=== PATIENT | male | born 1965 | race Caucasian/White ===

== ENCOUNTER 2023-06-29 23:52 | Inpatient (IN) | payer BC ==
[2023-06-30 00:13] LABS: #Basophils 0.1 thou/uL (0.0-0.2); #Eosinphils 0.1 thou/uL (0.0-0.7); #Monocytes 1.2 thou/uL (0.11-0.59); #Neutrophils 5.8 thou/uL (1.40-6.50); %Basophils 0.4 % (0.0-1.0); %Eosinophils 0.7 % (0.0-10.0); %Lymphocytes 41.8 % (21.0-51.0); %Monocytes 9.4 % (0.0-10.0); Hematocrit 23.2 % (42.0-52.0); Hemoglobin 7.9 g/dL (14.0-18.0); Mean Corpuscular HGB CONC 34.1 g/dL (32.0-36.0); Mean Corpuscular Volume 93.9 fl (78.0-98.0); Mean Platelet Volume 10.9 fL (7.4-10.4); Platelet Count 170 10x3/uL (130-400); RBC Distribution Width 14.9 % (11.5-14.5); Red Blood Cell (RBC) Count 2.47 mill/uL (4.70-6.10); White Blood Cell (WBC) Count 12.3 10x3/uL (4.8-10.8)
[2023-06-30] MEDS ORDERED: Tranexamic Acid 1,000 MG/10 ML VIAL ONE (00:29)
[2023-06-30] MEDS ORDERED: Pantoprazole 40 MG VIAL ONE (00:29)
[2023-06-30 00:37] LABS: ALT (SGPT) 62 U/L (8-55); AST (SGOT) 62 U/L (5-34); Albumin 3.5 g/dL (3.5-5.0); Alkaline Phosphatase 59 U/L (40-110); Anion Gap 20 mmol/L (10-20); BUN (Urea Nitrogen) 49 mg/dL (8.4-25.7); Bilirubin, Total 0.3 mg/dL (0.2-1.2); Calc. Creatinine Clearance 0 mL/min (70-130); Calcium 8.5 mg/dL (7.8-10.44); Carbon Dioxide 18 mmol/L (22-29); Chloride 106 mmol/L (98-107); Estimated GFR 99; Globulin 2.4 g/dL (2.4-3.5); Glucose 138 mg/dL (70-105); Lipase 72 U/L (8-78); Potassium 3.9 mmol/L (3.5-5.1); Protein, Total 5.9 g/dL (6.0-8.3); Sodium 140 mmol/L (136-145)
[2023-06-30 00:39] LABS: INR-International Normal Ratio 1.2; Prothrombin Time 15.2 sec (12.0-14.7)
[2023-06-30 00:40] LABS: PTT 25.3 sec (22.9-36.1); Troponin I 0.053 ng/mL (< 0.028)
[2023-06-30] MEDS ORDERED: Ondansetron PF 4 MG/2 ML Vial ONE (00:47)
[2023-06-30] MEDS ORDERED: cefTRIAXone (ROCEPHIN) 2 GM VIAL ONE (02:36)
[2023-06-30] MEDS ORDERED: Sodium Chloride 0.9% 100 ML ONE (02:36)
[2023-06-30] MEDS ORDERED: Acetaminophen 650 MG Suppository PR PRN (03:35)
[2023-06-30] MEDS ORDERED: Ondansetron PF 4 MG/2 ML Vial IVP PRN (03:35)
[2023-06-30] MEDS ORDERED: Ondansetron ODT 4 MG TAB PO PRN (03:35)
[2023-06-30] MEDS ORDERED: Dextrose 5%-Lactated Ringers 1,000 ML IV SCH (03:45)
[2023-06-30 04:04] VITALS: BMI 23.6
[2023-06-30 04:26] LABS: Troponin I 0.107 ng/mL (< 0.028)
[2023-06-30] MEDS ORDERED: Iopamidol 370 76% 100 ML VIAL ONE (09:12)
[2023-06-30 09:43] LABS: Troponin I 0.066 ng/mL (< 0.028)
[2023-06-30 09:54] LABS: Hemoglobin 8.2 g/dL (14.0-18.0)
[2023-06-30] MEDS: Pantoprazole 80 MG, Admixture Fee 1 EACH in Sodium Chloride 0.9% 100 ML IVPB SCH (14:56)
[2023-06-30] MEDS ORDERED: GoLYTELY 4,000 ml Bottle PO SCH (18:15)
[2023-06-30] MEDS ORDERED: hydrOXYzine 10 MG TAB PO SCH (20:00)
[2023-07-01] MEDS: Pantoprazole 80 MG, Admixture Fee 1 EACH in Sodium Chloride 0.9% 100 ML IVPB SCH (01:22)
[2023-07-01] MEDS ORDERED: Midazolam HCl 2 mg/2 ml Vial ONE (08:33)
[2023-07-01] MEDS ORDERED: PROPOFOL 40 ML ONE (09:02)
[2023-07-01] MEDS ORDERED: Lidocaine 2% PF 5 ML VIAL ONE (09:02)
[2023-07-01] MEDS ORDERED: PHENYLEPHRINE-NS 100 MCG/ML 10 ML SYRINGE ONE (09:03)
[2023-07-01] MEDS ORDERED: PROPOFOL 20 ML ONE (09:38)
[2023-07-01] MEDS ORDERED: Simethicone 40 MG/0.6 ML Drop 30 ML BOT ONE (09:38)
[2023-07-01] MEDS ORDERED: Promethazine HCl 25 MG/ML VIAL IM PRN (09:58)
[2023-07-01] MEDS ORDERED: Ondansetron HCl/PF 4 MG/2 ML Vial IVP PRN (09:58)
[2023-07-01 11:07] LABS: Campy jejuni + coli by PCR Negative (Negative); STEC Shiga Toxin 1+2 Negative (Negative); Salmonella spp. by PCR Negative (Negative); Shigella spp + EIEC by PCR Negative (Negative)
[2023-07-01] MEDS: Acetaminophen 325 MG TAB PO PRN ×2 (12:03→21:16)
[2023-07-01 13:17] LABS: #Monocytes 0.6 thou/uL (0.11-0.59); #Neutrophils 4.8 thou/uL (1.40-6.50); %Basophils 0.3 % (0.0-1.0); %Eosinophils 0.3 % (0.0-10.0); %Lymphocytes 21.1 % (21.0-51.0); %Monocytes 8.5 % (0.0-10.0); %Neutrophils 69.1 % (42.0-75.0); Hematocrit 24.3 % (42.0-52.0); Hemoglobin 8.1 g/dL (14.0-18.0); Mean Corpuscular HGB CONC 33.3 g/dL (32.0-36.0); Mean Corpuscular Hemoglobin 31.8 pg (27.0-31.0); Mean Corpuscular Volume 95.3 fl (78.0-98.0); Mean Platelet Volume 10.3 fL (7.4-10.4); Platelet Count 144 10x3/uL (130-400); RBC Distribution Width 15.9 % (11.5-14.5); Red Blood Cell (RBC) Count 2.55 mill/uL (4.70-6.10); White Blood Cell (WBC) Count 6.9 10x3/uL (4.8-10.8)
[2023-07-01 13:34] LABS: Anion Gap 12 mmol/L (10-20); BUN (Urea Nitrogen) 16 mg/dL (8.4-25.7); Calc. Creatinine Clearance 98 mL/min (70-130); Calcium 8.4 mg/dL (7.8-10.44); Carbon Dioxide 24 mmol/L (22-29); Chloride 108 mmol/L (98-107); Estimated GFR 101; Glucose 118 mg/dL (70-105); Potassium 3.6 mmol/L (3.5-5.1); Sodium 140 mmol/L (136-145)
[2023-07-01] MEDS ORDERED: Lorazepam 2 MG/ML VIAL SLOW IVP SCH (16:00)
[2023-07-01] MEDS: Pantoprazole 40 MG VIAL IVP SCH (21:08)
[2023-07-02 04:18] VITALS: TEMP 98.7
[2023-07-02] MEDS: Acetaminophen 325 MG TAB PO PRN ×2 (06:34→11:52)
[2023-07-02 08:16] VITALS: BP 157/78
[2023-07-02 08:18] LABS: ALT (SGPT) 118 U/L (8-55); AST (SGOT) 88 U/L (5-34); Albumin 3.4 g/dL (3.5-5.0); Alkaline Phosphatase 51 U/L (40-110); Bilirubin, Direct 0.2 mg/dL (0.1-0.3); Bilirubin, Total 0.6 mg/dL (0.2-1.2); Protein, Total 5.8 g/dL (6.0-8.3)
[2023-07-02] MEDS: Pantoprazole 40 MG VIAL IVP SCH (08:41)
[2023-07-02 08:43] LABS: #Monocytes 0.4 thou/uL (0.11-0.59); #Neutrophils 2.4 thou/uL (1.40-6.50); %Basophils 0.6 % (0.0-1.0); %Eosinophils 1.1 % (0.0-10.0); %Lymphocytes 20.4 % (21.0-51.0); %Monocytes 10.1 % (0.0-10.0); %Neutrophils 67.5 % (42.0-75.0); Hematocrit 20.7 % (42.0-52.0); Hemoglobin 6.9 g/dL (14.0-18.0); Mean Corpuscular HGB CONC 33.3 g/dL (32.0-36.0); Mean Corpuscular Hemoglobin 32.2 pg (27.0-31.0); Mean Corpuscular Volume 96.7 fl (78.0-98.0); Mean Platelet Volume 10.2 fL (7.4-10.4); Platelet Count 109 10x3/uL (130-400); RBC Distribution Width 15.3 % (11.5-14.5); Red Blood Cell (RBC) Count 2.14 mill/uL (4.70-6.10); White Blood Cell (WBC) Count 3.5 10x3/uL (4.8-10.8)
[2023-07-02 08:54] LABS: Anion Gap 9 mmol/L (10-20); BUN (Urea Nitrogen) 11 mg/dL (8.4-25.7); Calc. Creatinine Clearance 115 mL/min (70-130); Calcium 8.2 mg/dL (7.8-10.44); Carbon Dioxide 26 mmol/L (22-29); Chloride 110 mmol/L (98-107); Estimated GFR 105; Glucose 94 mg/dL (70-105); Potassium 3.3 mmol/L (3.5-5.1); Sodium 142 mmol/L (136-145)
[2023-07-02] MEDS ORDERED: Nadolol 40 MG TAB PO SCH (09:00)
[2023-07-02 13:04] LABS: Hematocrit 23.7 % (42.0-52.0); Hemoglobin 8.1 g/dL (14.0-18.0)
[2023-07-02] MEDS ORDERED: Famotidine 20 MG TAB PO SCH (21:00)
[2023-07-03] MEDS ORDERED: Nadolol 40 MG TAB PO SCH (09:00)
== END 2023-07-02 14:12 | disposition home or self-care (01) | DRG 432 ==
LOC: ERS 23:52 → ERHOLD 06-30 03:26 → T4-B 06-30 17:41
PROVIDERS: ADMIT Student in an Organized Health Care Education/Training Program; ATTEND Internal Medicine
PROC: 30233N1 Transfusion of Nonautologous Red Blood Cells into Peripheral Vein, Percutaneous Approach (ICD-10-PCS; 2023-06-30)
PROC: 06L38CZ Occlusion of Esophageal Vein with Extraluminal Device, Via Natural or Artificial Opening Endoscopic (ICD-10-PCS; principal; 2023-07-01)
PROC: 0DJD8ZZ Inspection of Lower Intestinal Tract, Via Natural or Artificial Opening Endoscopic (ICD-10-PCS; 2023-07-01)
DX: K74.69 Other cirrhosis of liver (principal); I85.11 Secondary esophageal varices with bleeding; K76.6 Portal hypertension; D62 Acute posthemorrhagic anemia; I5A Non-ischemic myocardial injury (non-traumatic); K52.9 Noninfective gastroenteritis and colitis, unspecified; R63.4 Abnormal weight loss; R61 Generalized hyperhidrosis; R79.89 Other specified abnormal findings of blood chemistry; F12.90 Cannabis use, unspecified, uncomplicated; F41.9 Anxiety disorder, unspecified; G47.33 Obstructive sleep apnea (adult) (pediatric); I10 Essential (primary) hypertension; E78.5 Hyperlipidemia, unspecified; B19.20 Unspecified viral hepatitis C without hepatic coma; I25.10 Atherosclerotic heart disease of native coronary artery without angina pectoris; Z95.818 Presence of other cardiac implants and grafts; Z87.891 Personal history of nicotine dependence; Z98.890 Other specified postprocedural states; Z68.23 Body mass index [BMI] 23.0-23.9, adult
CPT/HCPCS: 36415; 36416; 36430; 71045; 74177; 80048; 80053; 80076; 83690; 84484; 85025; 85610; 85730; 86850; 86900; 86901; 87505; 87522; 93005; C9113; J0696; J2001; J2060; J2250; J2405; J2704; J3490; P9016; Q9967